=== PATIENT | female | born 1940 | race Caucasian/White ===

== ENCOUNTER 2019-11-29 10:18 | Inpatient (IN) | payer MEDICARE, OTHER ==
[~2019-11-29] VITALS: Ht 162.6 cm; Wt 71.1 kg
[2019-11-29] MEDS ORDERED: SODIUM CHLORIDE 0.9% 500 ML IVB ONE (10:20)
[2019-11-29 10:40] LABS: Basophils # (auto) 0.1 10 ^3/uL (0-0.2); Basophils % (auto) 0.6 % (0.0-2.0); Eosinophils # (auto) 0 10 ^3/uL (0-0.8); Hematocrit 42.4 % (36.0-46.0); Hemoglobin 14.1 g/dL (12.2-16.2); Lymphocytes % (auto) 8.1 % (10.0-50.0); Mean Corpuscular Hemoglobin 30.2 pg (28.0-32.0); Mean Corpuscular Hgb Conc. 33.2 g/dL (32.0-36.0); Mean Corpuscular Volume 91.2 fL (80.0-100.0); Monocytes # (auto) 1.1 10 ^3/uL (0-1.3); Monocytes % (auto) 8.6 % (0.0-12.0); Neutrophils # (auto) 10.4 10 ^3/uL (1.6-8.6); Neutrophils % (auto) 82.7 % (37.0-80.0); Platelet Count (auto) 282 10^3/uL (140-450); Red Blood Cells 4.65 10^6/uL (4.0-5.20); Red Cell Distribution Width 13.1 % (11.8-14.3); White Blood Cell 12.6 10^3/uL (4.4-10.8)
[2019-11-29 10:59] LABS: Albumin 3.4 g/dL (3.4-5.0); Anion Gap 6 (5-15); Blood Urea Nitrogen 14 mg/dL (7-18); Calcium 8.3 mg/dL (8.5-10.1); Carbon Dioxide 24 mmol/L (21-32); Chloride 104 mmol/L (98-107); Glucose 113 mg/dL (74-106); Magnesium 2.1 mg/dL (1.6-2.6); Potassium 3.6 mmol/L (3.5-5.1); Sodium 134 mmol/L (136-145)
[2019-11-29 11:04] LABS: Alanine Aminotransferase 20 U/L (13-56); Alkaline Phosphatase 83 U/L (45-117); Aspartate Aminotransferase 20 U/L (15-37); BUN/Creatinine Ratio 20.9; Bilirubin, Total 0.4 mg/dL (0.2-1.0); GFR African American 110 mL/min; GFR Non-African American 91 mL/min; Total Protein 6.6 g/dL (6.4-8.2)
[2019-11-29] MEDS ORDERED: PROCHLORPERAZINE EDISYLATE 5 MG/ML 2ML VIAL IV ONE (11:30)
[2019-11-29 12:19] LABS: Urine Bacteria NONE SEEN /hpf (None Seen); Urine Blood Negative /uL (Negative); Urine Mucus FEW (None Seen); Urine Specific Gravity 1.017 (1.001-1.035); Urine WBC 1 /hpf (0 - 5)
[2019-11-29] MEDS ORDERED: NITROGLYCERIN 0.4 MG SL TAB SL PRN (13:15)
[2019-11-29] MEDS ORDERED: MORPHINE SULF INJ 2 MG/ML SYRINGE 1ML IV PRN ×2 (13:15→13:30)
[2019-11-29] MEDS: SODIUM CHLORIDE 0.9% 1,000 ML IV SCH (13:17)
[2019-11-29] MEDS ORDERED: TEMAZEPAM 15 MG CAP PO PRN (13:30)
[2019-11-29] MEDS ORDERED: LACTULOSE 20Gm/30ML SOLN PO PRN (13:30)
[2019-11-29 14:02] LABS: Amylase 52 U/L (25-115); Lipase 57 U/L (73-393)
[2019-11-29] MEDS ORDERED: PROMETHAZINE HCL 25 MG/ML 1ML IV ONE (19:00)
[2019-11-29] MEDS ORDERED: PROMETHAZINE IV ONE (19:15)
[2019-11-29] MEDS ORDERED: SODIUM CHL 0.9% IV ONE (19:15)
[2019-11-29] MEDS ORDERED: cefTRIAXone 1GM/50ML D5W 50 ML IV ONE (20:30)
[2019-11-29 20:55] VITALS: BP 105/49
[2019-11-29] MEDS: FAMOTIDINE 20 MG TAB PO SCH (21:24)
[2019-11-29] MEDS: ATORVASTATIN 20 MG TAB PO SCH (21:25)
[2019-11-29 22:00] VITALS: BP 105/49
[2019-11-29 22:35] LABS: CRP High Sensitivity 6.25 mg/dL (< 0.3)
[2019-11-30] MEDS: SODIUM CHLORIDE 0.9% 1,000 ML IV SCH ×2 (03:17→15:26)
[2019-11-30 05:00] VITALS: BP 140/64
[2019-11-30 06:26] LABS: Basophils # (auto) 0 10 ^3/uL (0-0.2); Basophils % (auto) 0.3 % (0.0-2.0); Eosinophils # (auto) 0 10 ^3/uL (0-0.8); Eosinophils % (auto) 0.1 % (0.0-7.0); Hematocrit 39.5 % (36.0-46.0); Lymphocytes # (auto) 1.3 10 ^3/uL (0.4-5.4); Lymphocytes % (auto) 13.4 % (10.0-50.0); Mean Corpuscular Hemoglobin 30.6 pg (28.0-32.0); Mean Corpuscular Hgb Conc. 32.9 g/dL (32.0-36.0); Mean Corpuscular Volume 92.7 fL (80.0-100.0); Monocytes # (auto) 1.3 10 ^3/uL (0-1.3); Monocytes % (auto) 13.1 % (0.0-12.0); Neutrophils # (auto) 7.3 10 ^3/uL (1.6-8.6); Neutrophils % (auto) 73.1 % (37.0-80.0); Platelet Count (auto) 255 10^3/uL (140-450); Red Blood Cells 4.26 10^6/uL (4.0-5.20); Red Cell Distribution Width 13.2 % (11.8-14.3); White Blood Cell 9.9 10^3/uL (4.4-10.8)
[2019-11-30] MEDS: traMADol HCL 50 MG TAB PO PRN ×2 (08:04→19:33)
[2019-11-30] MEDS: cefTRIAXone 1GM/50ML D5W 50 ML IV SCH (08:04)
[2019-11-30 09:00] VITALS: BP 131/60
[2019-11-30] MEDS: ENOXAPARIN SOD 40 MG/0.4 ML SYRINGE SC SCH ×2 (10:00→10:21)
[2019-11-30] MEDS: FAMOTIDINE 20 MG TAB PO SCH (10:21)
[2019-11-30] MEDS: ASPirin 81 mg TAB PO SCH (10:21)
[2019-11-30] MEDS ORDERED: AZITHROMYCIN 500MG/ 250ML 250 ML IV ONE (11:45)
[2019-11-30 13:00] VITALS: BP 137/58
[2019-11-30 17:00] VITALS: BP 146/75
[2019-11-30] MEDS ORDERED: LORazepam 2MG/ML-1ML VIAL IV PRN (17:15)
[2019-11-30] MEDS: metroNIDAZOLE 500MG/100ML 100 ML IV SCH ×2 (17:19→23:22)
[2019-11-30] MEDS: ACETAMINOPHEN 500 MG TAB PO PRN (18:16)
[2019-11-30] MEDS: ATORVASTATIN 20 MG TAB PO SCH (19:34)
[2019-11-30 22:00] VITALS: BP 136/81
[2019-12-01] MEDS: SODIUM CHLORIDE 0.9% 1,000 ML IV SCH ×3 (02:47→17:54)
[2019-12-01 05:00] VITALS: BP 157/82
[2019-12-01] MEDS: metroNIDAZOLE 500MG/100ML 100 ML IV SCH ×3 (06:28→21:41)
[2019-12-01 08:02] LABS: Basophils # (auto) 0.1 10 ^3/uL (0-0.2); Basophils % (auto) 0.7 % (0.0-2.0); Eosinophils # (auto) 0 10 ^3/uL (0-0.8); Eosinophils % (auto) 0.5 % (0.0-7.0); Hematocrit 38.7 % (36.0-46.0); Hemoglobin 12.6 g/dL (12.2-16.2); Lymphocytes # (auto) 1.3 10 ^3/uL (0.4-5.4); Lymphocytes % (auto) 16.7 % (10.0-50.0); Mean Corpuscular Hemoglobin 30.3 pg (28.0-32.0); Mean Corpuscular Hgb Conc. 32.5 g/dL (32.0-36.0); Mean Corpuscular Volume 93.2 fL (80.0-100.0); Monocytes # (auto) 0.9 10 ^3/uL (0-1.3); Monocytes % (auto) 11.5 % (0.0-12.0); Neutrophils # (auto) 5.5 10 ^3/uL (1.6-8.6); Neutrophils % (auto) 70.6 % (37.0-80.0); Nucleated Red Blood Cells % 0.1 %; Platelet Count (auto) 258 10^3/uL (140-450); Red Blood Cells 4.15 10^6/uL (4.0-5.20); Red Cell Distribution Width 13.6 % (11.8-14.3); White Blood Cell 7.7 10^3/uL (4.4-10.8)
[2019-12-01] MEDS: cefTRIAXone 1GM/50ML D5W 50 ML IV SCH (08:24)
[2019-12-01] MEDS: ASPirin 81 mg TAB PO SCH (08:25)
[2019-12-01] MEDS: PANTOPRAZOLE 40 MG/10 ML VIAL INJ IV SCH (08:25)
[2019-12-01] MEDS: traMADol HCL 50 MG TAB PO PRN ×2 (08:25→16:42)
[2019-12-01 08:26] LABS: Potassium 3.6 mmol/L (3.5-5.1)
[2019-12-01 08:33] LABS: Albumin 2.7 g/dL (3.4-5.0); BUN/Creatinine Ratio 28.8; Bilirubin, Total 0.3 mg/dL (0.2-1.0); Calcium 8.1 mg/dL (8.5-10.1)
[2019-12-01 09:00] VITALS: BP 159/76
[2019-12-01] MEDS: AZITHROMYCIN 500MG/ 250ML 250 ML IV SCH (09:40)
[2019-12-01] MEDS: ENOXAPARIN SOD 40 MG/0.4 ML SYRINGE SC SCH (09:40)
[2019-12-01] MEDS: ACETAMINOPHEN 500 MG TAB PO PRN (09:41)
[2019-12-01 13:00] VITALS: BP 153/76
[2019-12-01 16:24] VITALS: BP 167/87
[2019-12-01] MEDS: ATORVASTATIN 20 MG TAB PO SCH (20:43)
[2019-12-01] MEDS: PROMETHAZINE HCL 25 MG/ML 1ML IV PRN (20:48)
[2019-12-01 21:50] VITALS: BP 164/82
[2019-12-02] MEDS: SODIUM CHLORIDE 0.9% 1,000 ML IV SCH ×3 (00:27→16:44)
[2019-12-02 04:57] VITALS: BP 160/73
[2019-12-02] MEDS: metroNIDAZOLE 500MG/100ML 100 ML IV SCH ×3 (05:03→21:10)
[2019-12-02 07:30] LABS: Basophils # (auto) 0.1 10 ^3/uL (0-0.2); Basophils % (auto) 0.7 % (0.0-2.0); Eosinophils # (auto) 0.1 10 ^3/uL (0-0.8); Eosinophils % (auto) 0.9 % (0.0-7.0); Hematocrit 39.8 % (36.0-46.0); Hemoglobin 12.8 g/dL (12.2-16.2); Lymphocytes # (auto) 1.2 10 ^3/uL (0.4-5.4); Mean Corpuscular Hemoglobin 29.9 pg (28.0-32.0); Mean Corpuscular Hgb Conc. 32.3 g/dL (32.0-36.0); Mean Corpuscular Volume 92.5 fL (80.0-100.0); Monocytes % (auto) 13.6 % (0.0-12.0); Neutrophils % (auto) 67.8 % (37.0-80.0); Platelet Count (auto) 274 10^3/uL (140-450); Red Cell Distribution Width 13.4 % (11.8-14.3); White Blood Cell 7.3 10^3/uL (4.4-10.8)
[2019-12-02 08:00] VITALS: BP 148/82
[2019-12-02 08:01] LABS: Albumin 2.7 g/dL (3.4-5.0); BUN/Creatinine Ratio 12.1; Bilirubin, Total 0.5 mg/dL (0.2-1.0); Calcium 8.3 mg/dL (8.5-10.1); Total Protein 6.2 g/dL (6.4-8.2)
[2019-12-02] MEDS: cefTRIAXone 1GM/50ML D5W 50 ML IV SCH (08:18)
[2019-12-02] MEDS: PANTOPRAZOLE 40 MG/10 ML VIAL INJ IV SCH (09:18)
[2019-12-02] MEDS: ENOXAPARIN SOD 40 MG/0.4 ML SYRINGE SC SCH (09:19)
[2019-12-02] MEDS: ASPirin 81 mg TAB PO SCH (09:19)
[2019-12-02] MEDS: AZITHROMYCIN 500MG/ 250ML 250 ML IV SCH (09:19)
[2019-12-02] MEDS ORDERED: cloNIDine HCL 0.1 MG TAB PO PRN (10:30)
[2019-12-02] MEDS ORDERED: GOLYTELY 4L KIT PO ONE (11:30)
[2019-12-02 12:00] VITALS: BP 148/74
[2019-12-02] MEDS: SUCRALFATE 1 GM/10 ML ORAL SUSP PO SCH ×3 (13:06→21:10)
[2019-12-02 17:00] VITALS: BP 151/72
[2019-12-02 20:43] LABS: INR 1.1 (0.9-1.15)
[2019-12-02 21:00] VITALS: BP 158/77
[2019-12-02] MEDS: PANTOPRAZOLE 40 MG TAB PO SCH (21:11)
[2019-12-02] MEDS: ATORVASTATIN 20 MG TAB PO SCH (21:11)
[2019-12-02] MEDS: traMADol HCL 50 MG TAB PO PRN (21:18)
[2019-12-02] MEDS: PROMETHAZINE HCL 25 MG/ML 1ML IV PRN (23:03)
[2019-12-03 05:00] VITALS: BP 159/72
[2019-12-03] MEDS: SODIUM CHLORIDE 0.9% 1,000 ML IV SCH ×3 (05:20→18:00)
[2019-12-03] MEDS: metroNIDAZOLE 500MG/100ML 100 ML IV SCH ×3 (05:21→21:01)
[2019-12-03 05:48] LABS: Basophils # (auto) 0 10 ^3/uL (0-0.2); Basophils % (auto) 0.8 % (0.0-2.0); Eosinophils # (auto) 0.1 10 ^3/uL (0-0.8); Eosinophils % (auto) 1.4 % (0.0-7.0); Hematocrit 36.8 % (36.0-46.0); Hemoglobin 12.3 g/dL (12.2-16.2); Lymphocytes # (auto) 1.4 10 ^3/uL (0.4-5.4); Lymphocytes % (auto) 24.7 % (10.0-50.0); Mean Corpuscular Hemoglobin 30.9 pg (28.0-32.0); Mean Corpuscular Hgb Conc. 33.5 g/dL (32.0-36.0); Mean Corpuscular Volume 92.1 fL (80.0-100.0); Monocytes # (auto) 0.8 10 ^3/uL (0-1.3); Monocytes % (auto) 13.4 % (0.0-12.0); Neutrophils # (auto) 3.5 10 ^3/uL (1.6-8.6); Neutrophils % (auto) 59.7 % (37.0-80.0); Nucleated Red Blood Cells % 0.1 %; Platelet Count (auto) 276 10^3/uL (140-450); Red Blood Cells 3.99 10^6/uL (4.0-5.20); Red Cell Distribution Width 13.1 % (11.8-14.3); White Blood Cell 5.9 10^3/uL (4.4-10.8)
[2019-12-03] MEDS ORDERED: GOLYTELY 4L KIT PO ONE (06:00)
[2019-12-03 06:16] LABS: Albumin 2.6 g/dL (3.4-5.0); BUN/Creatinine Ratio 12.8; Bilirubin, Total 0.4 mg/dL (0.2-1.0); Calcium 7.8 mg/dL (8.5-10.1); Total Protein 5.5 g/dL (6.4-8.2)
[2019-12-03] MEDS: SUCRALFATE 1 GM/10 ML ORAL SUSP PO SCH ×4 (06:46→21:01)
[2019-12-03] MEDS ORDERED: POTASSIUM CHL 20MEQ/100ML 100 ML IV ONE (07:30)
[2019-12-03] MEDS ORDERED: NALOXONE HCL 0.4 MG/ML VIAL ONE (09:28)
[2019-12-03] MEDS ORDERED: SODIUM CHLORIDE LOCK 10 ML ONE (09:28)
[2019-12-03] MEDS ORDERED: FLUMAZENIL 0.1 MG/ML INJ 10ML MDV IV ONE (09:28)
[2019-12-03] MEDS ORDERED: diphenhdrAMINE HCL 50 MG/1 ML VL ONE (09:29)
[2019-12-03] MEDS: MIDAZOLAM HCL 5 MG/ML-1ML VIAL ONE ×2 (09:40→09:45)
[2019-12-03] MEDS: fentaNYL CITRATE 100 MCG/2 ML VL ONE ×2 (09:40→09:54)
[2019-12-03 09:45] VITALS: BP 158/77
[2019-12-03] MEDS: ENOXAPARIN SOD 40 MG/0.4 ML SYRINGE SC SCH (10:00)
[2019-12-03 10:24] LABS: Folate (Folic Acid) 20.74 ng/mL (5.38-24)
[2019-12-03] MEDS: levoFLOXacin 500MG 100 ML IV SCH (12:14)
[2019-12-03] MEDS: PANTOPRAZOLE 40 MG TAB PO SCH ×2 (12:14→21:01)
[2019-12-03 13:00] VITALS: BP 146/86
[2019-12-03 16:34] VITALS: BP 132/69
[2019-12-03 20:00] VITALS: BP 157/82
[2019-12-03] MEDS: ATORVASTATIN 20 MG TAB PO SCH (21:01)
[2019-12-03 22:55] VITALS: BP 157/82
[2019-12-04] MEDS: SODIUM CHLORIDE 0.9% 1,000 ML IV SCH ×2 (02:00→10:19)
[2019-12-04 05:34] VITALS: BP 147/67
[2019-12-04] MEDS: SUCRALFATE 1 GM/10 ML ORAL SUSP PO SCH (06:18)
[2019-12-04] MEDS: metroNIDAZOLE 500MG/100ML 100 ML IV SCH (06:18)
[2019-12-04 08:59] VITALS: BP 156/76
[2019-12-04] MEDS: PANTOPRAZOLE 40 MG TAB PO SCH (10:19)
[2019-12-04] MEDS: ENOXAPARIN SOD 40 MG/0.4 ML SYRINGE SC SCH (10:19)
[2019-12-04] MEDS: levoFLOXacin 500MG 100 ML IV SCH (10:19)
[2019-12-04 12:06] VITALS: BP 146/65
== END 2019-12-04 12:17 | disposition home or self-care (01) | DRG 871 ==
LOC: EDBD 10:18 → ER 10:18 → TELE 10:19 → TELE-CENTR 20:58
PROVIDERS: ADMIT Internal Medicine; ATTEND Family Medicine
PROC: 0DBL8ZZ Excision of Transverse Colon, Via Natural or Artificial Opening Endoscopic (ICD-10-PCS; principal; 2019-12-03 09:39)
DX: A41.9 Sepsis, unspecified organism (principal); J18.9 Pneumonia, unspecified organism; G93.41 Metabolic encephalopathy; E87.6 Hypokalemia; K21.9 Gastro-esophageal reflux disease without esophagitis; E86.0 Dehydration; G89.29 Other chronic pain; K52.9 Noninfective gastroenteritis and colitis, unspecified; F17.200 Nicotine dependence, unspecified, uncomplicated; M54.2 Cervicalgia; I73.9 Peripheral vascular disease, unspecified; K57.30 Diverticulosis of large intestine without perforation or abscess without bleeding; Z20.828 Contact with and (suspected) exposure to other viral communicable diseases; Z98.41 Cataract extraction status, right eye; Z98.42 Cataract extraction status, left eye; Z90.710 Acquired absence of both cervix and uterus; Z80.1 Family history of malignant neoplasm of trachea, bronchus and lung; R55 Syncope and collapse
CPT/HCPCS: 36415; 70450; 70551; 71045; 74176; 76705; 80053; 81001; 82150; 82550; 82607; 82746; 83690; 83735; 84443; 84484; 85025; 85379; 85610; 85652; 86141; 87040; 93005; 93306; 93886; 95819; C9113; G0378; J0696; J1956; J2250; J3480; J3490